=== PATIENT | female | born 1940 | race Caucasian/White ===

== ENCOUNTER 2017-06-15 07:48 | Day surgery (SDC) | payer MEDICARE, BC ==
[~2017-06-15] VITALS: Ht 157.5 cm; Wt 60.8 kg
[2017-06-15] MEDS ORDERED: LEVOTHYROXINE125 MCG PO (08:04)
--- NOTE | 2017-06-15 09:48 | NUR ---
06/15/17 0948 Gail Wilder 0952 PATIENT ARRIVES TO PACU SLEEPING, OPENS EYES TO VERBAL STIMULI, THEN BACK TO SLEEP. RESP EVEN AND UNLABORED, NC AT 2 LITERS.
--- NOTE | 2017-06-16 10:38 | OR ---
[facility] [address], [place] [address] Signed DATE OF PROCEDURE: 06/15/17 PREOPERATIVE DIAGNOSES Screening. Diverticulosis. POSTOPERATIVE DIAGNOSES A 4-mm polyp proximal right colon. A 4-mm polyp at 15 cm (rectosigmoid junction). An 8-mm polyp at 10 cm (anterior with tattoo). PROCEDURE Colonoscopy with hot biopsy and injection of tattoo. Rigid proctoscopy. ESTIMATED BLOOD LOSS: None. INDICATIONS Aubrey is a 76-year-old female, who was asked to see me for her initial screening colonoscopy. She has no lower GI complaints. There is no family history of colon cancer or polyps. In the office, I gave her a pamphlet on colonoscopy and we reviewed that together along with the risks and benefits. She understands there is risk including but not limited to gas bloating, crampy abdominal pain, bleeding, perforation requiring surgery, and missed diagnosis. She told me her son underwent a colonoscopy, so she is somewhat familiar with the process. I had also reviewed the written instructions for the bowel prep. She also understands the need for IV conscious sedation. She had expressed understanding and wished to proceed. PROCEDURE NOTE Aubrey was taken into our endoscopy suite and placed in the left lateral decubitus position. She was given divided doses of 6 mg of Versed and 100 mcg of Fentanyl. A digital rectal exam was performed and this was unremarkable. The adult colonoscope was then introduced and advanced all around into the cecum under direct visualization of camera without difficulty. Her prep was good. The scope was then slowly withdrawn . We used a hot biopsy forceps to remove all 3 polyps. In the rectum, the polyp was behind the fold and so it was difficult to see and somewhat technically difficult to grab with a hot biopsy forceps. Consequently, we placed a tattoo on the distal side of that fold to tania its location. We then inserted the rigid proctoscope and we can see that it is at 10 cm anteriorly. We had retroflexed the flexible scope and we could see that there was no additional pathology noted above the anal canal. After this, the gas was suctioned out and the colonoscope removed. We noted no evidence of any diverticula. Aubrey tolerated the procedure quite well. Electronically Signed By: MILAGRO RIBEIRO MD 06/16/17 1038 PATIENT NAME: AUBREY ACEVES OPERATIVE REPORT DATE OF : 38 PHYSICIAN: MILAGRO RIBEIRO MD REPORT #: [id number] REPORT IS CONFIDENTIAL AND NOT TO BE RELEASED WITHOUT AUTHORIZATION [address] [address] Signed RECOMMENDATIONS I will see Aubrey back in my office in 7-14 days to review her results. MD VIVEK Arteaga/Frandy /[id number] cc: Addy Hannah MD Electronically Signed By: MILAGRO RIBEIRO MD 06/16/17 1038 PATIENT NAME: AUBREY ACEVES OPERATIVE REPORT DATE OF : 38 PHYSICIAN: MILAGRO RIBEIRO MD REPORT #: [id number] REPORT IS CONFIDENTIAL AND NOT TO BE RELEASED WITHOUT AUTHORIZATION
== END 2017-06-15 10:45 | disposition home or self-care (01) ==
LOC: OPS 07:48 → DS 07:48 → OPS 09:00 → DS 09:00 → OPS 10:45
PROVIDERS: Colon & Rectal Surgery
PROC: 0DBP8ZX Excision of Rectum, Via Natural or Artificial Opening Endoscopic, Diagnostic (ICD-10-PCS; 2017-06-15)
PROC: 3E0H8GC Introduction of Other Therapeutic Substance into Lower GI, Via Natural or Artificial Opening Endoscopic (ICD-10-PCS; 2017-06-15)
PROC: 0DBK8ZX Excision of Ascending Colon, Via Natural or Artificial Opening Endoscopic, Diagnostic (ICD-10-PCS; 2017-06-15)
PROC: 0DBN8ZX Excision of Sigmoid Colon, Via Natural or Artificial Opening Endoscopic, Diagnostic (ICD-10-PCS; principal; 2017-06-15 09:00)
DX: D12.2 Benign neoplasm of ascending colon (principal); K57.30 Diverticulosis of large intestine without perforation or abscess without bleeding; E11.9 Type 2 diabetes mellitus without complications; Z90.710 Acquired absence of both cervix and uterus; Z98.890 Other specified postprocedural states
CPT/HCPCS: 88305; 99152; 99153; J2250; J3010; J7120

== ENCOUNTER 2019-10-05 11:24 | Emergency (ER) | payer MEDICARE, OTHER ==
[~2019-10-05] VITALS: Ht 157.5 cm; Wt 60.8 kg
[~2019-10-05 11:24] MED LIST: ACIDOPHILUS1 EAC2 PO; BETAINE HCL300 MG PO; COUMADIN4 MG PO; DILTIAZEM ER120 M2 PO; FISH OIL 1,0001 EAC5 PO; LEVOTHYROXINE125 MCG PO; NP THYROID60 MG PO; NP THYROID90 MG PO; PRENATAL FORMU1 EAC3 PO; THYROID PO; THYROID30 MG PO; TIAZAC120 MG PO; VITAMIN D31000 UNI1 PO; WARFARIN SODIUM3 MG PO
== END 2019-10-05 13:39 | disposition home or self-care (01) ==
LOC: ED 11:24
DX: S62.525A Nondisplaced fracture of distal phalanx of left thumb, initial encounter for closed fracture (principal); S51.811A Laceration without foreign body of right forearm, initial encounter; S81.811A Laceration without foreign body, right lower leg, initial encounter; W18.30XA Fall on same level, unspecified, initial encounter; Z79.899 Other long term (current) drug therapy; Z79.01 Long term (current) use of anticoagulants
CPT/HCPCS: 29125; 73140; 99283-25

== ENCOUNTER 2021-06-10 06:25 | Day surgery (SDC) | payer MEDICARE, OTHER ==
[~2021-06-10] VITALS: Ht 157.5 cm; Wt 57.7 kg
[~2021-06-10 06:25] MED LIST changes: +ATORVASTATIN CA40 MG PO; -COUMADIN4 MG PO; +GLUCOPHAGE500 MG PO; +MEMANTINE HCL5 MG PO; +METFORMIN HCL750 MG PO; +WARFARIN SODIUM4 MG PO
--- NOTE | 2021-06-10 08:51 | NUR ---
06/10/21 0851 Gail Wilder 0881 PATIENT ARRIVES TO PACU, UNRESPONSIVE TO VERBAL STIMULI, ORAL AIRWAY IN PLACE. RESP EVEN AND UNLABORED, MASK AT 6 LITERS.
[2021-06-10] MEDS ORDERED: HYDROCODON-ACE1 EA10 PO (09:28)
[2021-06-10] MEDS ORDERED: ACETAMINOPHEN500 MG PO (09:28)
--- NOTE | 2021-06-10 09:45 | NUR ---
PT ALERT, ORIENTED AND SUPPORTED BY HER SON AICHA. PT IS PLEASANT, DID MENTION THAT SHE WAS CHILLED, WILL HAVE RN BRING WORM BLANKET. GAVE ENCOURAGEMENT. HADE PRAYER WITH BOTH. WILL FOLLOW
--- NOTE | 2021-06-10 10:34 | NUR ---
1025 ANSWERED CALL, PT WANTED TO GO TO THE BATHROOM SHE WAS ABLE TO WALK WITH MINIMAL ASSIST AND WAS ABLE TO VOID A GOOD AMOUNT OF CLEAR YELLOW URINE. PT TUCKED BACK INTO BED WITH WARM BLANKETS.
--- NOTE | 2021-06-10 16:31 | NUR ---
LATE ENTRY: 09: PATIENT BACK IN DAY SURGERY ROOM FROM PACU. LEFT BREAST DRESSING CDI. LEFT AXILLA DRESSING WITH SMALL AMOUNT OF RED DRAINAGE. IV SITE WNL. VS CHECKED. RATES PAIN 3/10. DECLINES PAIN MEDICATION AT THIS TIME. GIVEN SIPS OF WATER. ICE WATER PLACED AT BEDSIDE. 1100: DISCHARGE INSTRUCTIONS GIVEN TO PATIENT AND SON. IV DC'D WNL. TIP INTACT. ASSISTED PATIENT TO GET DRESSED. STAND BY ASSIST TO BATHROOM. 1112: PATIENT DISCHARGED TO HOME WITH SON VIA WHEELCHAIR.
--- NOTE | 2021-06-11 13:15 | OR ---
[facility] [address] [place], [place] [address] Signed DATE OF OPERATION: 06/10/2021 SURGEON: Laura Paz MD PREOPERATIVE DIAGNOSES: 1. Left lower outer breast mass highly suspicious for malignancy. 2. Dementia, chronic medical problems including chronic anticoagulation for atrial fibrillation. POSTOPERATIVE DIAGNOSES: 1. Left lower outer breast mass highly suspicious for malignancy. 2. Dementia, chronic medical problems including chronic anticoagulation for atrial fibrillation. 3. [place] lymph node negative on touch prep for metastatic disease. PROCEDURE: 1. Left partial mastectomy, lower outer quadrant. 2. Left methylene blue injection for sentinel lymph node biopsy. 3. Left deep axillary sentinel lymph node biopsy. ANESTHESIA: General LMA, Zoltan Hunter CRNA. INDICATIONS: This 80-year-old white woman is a patient of Pastor Camejo. She identified a mass in the lateral aspect of the breast which is in the left lower outer aspect. It is highly suspicious for malignancy based on clinical characteristics. Imaging studies including a mammogram and ultrasound confirmed this highly probable to be malignancy, so biopsy had not been performed. I have conferred with the radiologist, Dr. Cardoza regarding this, who suggested lumpectomy rather than image-guided biopsy given its location, her small breast and her other medical problems that would need to be contended with specifically management of anticoagulation. Given her underlying dementia and other logistical issues, I have reviewed with the patient and her son, option of management to include excision of the mass as a partial mastectomy with concurrent methylene blue sentinel lymph node biopsy. We acknowledge that the mass may be benign, though most likely is malignant based on clinical and radiographic characteristics. Streamlining her care and avoidance of reversing anticoagulation on multiple occasions plays into this approach at this time. If malignancy is identified and complete excision has been accomplished and sentinel lymph Electronically Signed By: LAURA PAZ MD 06/11/21 1315 PATIENT NAME: AUBREY ACEVES OPERATIVE REPORT DATE OF : 38 REPORT #: [id number] PHYSICIAN: LAURA PAZ MD PCP: PASTOR CAMEJO REPORT IS CONFIDENTIAL AND NOT TO BE RELEASED WITHOUT AUTHORIZATION [facility] [address], [place] [address] Signed node identification shows no sign of metastatic disease, and consideration would then be made for adjuvant radiation therapy. If the lesion proves to be benign, then no further treatment would be required obviously. Understanding the particulars in her situation, her son and the patient herself wished to proceed as we have described. FINDINGS: The mass in the breast was in the lower outer quadrant and was quite firm and highly suggestive of malignancy clinically. It did not penetrate through the pectoralis fascia and was excised with a clinically negative margin. Permanent pathology is pending. As regards to the sentinel lymph node, there was well identified with good uptake of methylene blue dye. There was a larger than expected approximately 2 cm in size, but on examination by Dr. Tatum, the pathologist was largely fatty infiltrated and the rim of lymphoid tissue was deemed better seen on a touch prep and frozen pathology so as to not destroy the parenchyma of the lymph node itself for permanent examination. The touch prep was negative for metastatic disease. Operation consisted of partial mastectomy with sentinel lymph node biopsy. No drains were required. DESCRIPTION OF PROCEDURE: The patient was brought to the operating room, given a general anesthetic by LMA technique. Preoperative antibiotic Ancef was given. Her COVID preop test was negative as well. 1 mL of methylene blue dye was injected in subepithelial space with a 30-gauge needle showing lymphatic uptake rather promptly. Minimal massage of the breast was undertaken to expedite lymphatic uptake as well. There was no clinically palpable axillary adenopathy. The mass of the breast was in the lower outer quadrant and measured at least 2 cm in size, it was quite firm, but not fixed to the chest wall. The breast and axilla and so forth were prepared with a Betadine solution and draped sterilely. A small transverse incision was made in the mid axilla. Dissection was carried through the subcutaneous tissue with blunt and electrocautery dissection identifying promptly a lymphatic channel with blue dye, which was followed to a relatively large lymph node that had good uptake of the dye as well. This was dissected free with all due care, found to be about 2 cm in size. This past a sentinel lymph node #1. Examination of the remaining axilla did not show other lymph nodes with blue dye uptake. The wound was then packed with some gauze. Attention was then turned towards the mass itself. Given its location, a submammary incision was deemed most advisable for cosmetic benefit. The inframammary crease in the lateral aspect was incised and a flap was developed superiorly maintaining a negative margin on the underlying firm and suspicious mass. Dissection was carried superiorly and then deeply to the chest wall maintaining a clinically negative margin throughout. Electronically Signed By: LAURA PAZ MD 06/11/21 1315 PATIENT NAME: AUBREY ACEVES OPERATIVE REPORT DATE OF : 39 REPORT #: [id number] PHYSICIAN: LAURA PAZ MD PCP: PASTOR CAMEJO REPORT IS CONFIDENTIAL AND NOT TO BE RELEASED WITHOUT AUTHORIZATION [place] [phone] Signed The specimen was oriented with a suture, a short stitch superior, a long stitch laterally. Complete excision was undertaken with no evidence of transgression of the tumor itself. Notably, the superficial margin was likely the closest though it was not likely to be positive in any way. Irrigation was undertaken in the wound. The parenchyma was reapproximated with interrupted 2-0 Vicryl and skin closed with running subcuticular 3-0 Vicryl, by this point, frozen pathology was returned. Instead of a frozen, examination of the lymph node, Dr. Tatum, the pathologist noted that the lymph node was largely fatty infiltrated and therefore, a touch prep was performed and sent it for frozen pathology. This did not show evidence of malignancy. There was no sign of bleeding or other problem within the axilla. The wound was closed with interrupted 2-0 Vicryl in deep layer and running subcuticular 3-0 Vicryl for the skin. Steri-Strips were applied to each wound as were Acticoat silver sponge dressings. The patient was ultimately allowed to emerge from anesthesia, extubated, and taken to the recovery room in good condition. Blood loss was less than 20 mL in aggregate. MD LASHELL Kirby/FABI /[id number] cc: TIA Shafer Copies: PASTOR CAMEJO ~ Electronically Signed By: LAURA PAZ MD 06/11/21 1315 PATIENT NAME: AUBREY ACEVES OPERATIVE REPORT DATE OF : 38 REPORT #: [id number] PHYSICIAN: LAURA PAZ MD PCP: PASTOR CAMEJO REPORT IS CONFIDENTIAL AND NOT TO BE RELEASED WITHOUT AUTHORIZATION
--- NOTE | 2021-06-17 16:01 | PATH ---
[facility] [address] [place], [place] [address] Signed THIS IS AN ADDENDUM REPORT SPECIMEN(S): A SENTINEL LYMPH NODE 1 SPECIMEN(S): B LEFT BREAST MASS SPECIMEN SOURCE: A. SENTINEL LYMPH NODE 1 B. LEFT BREAST MASS CLINICAL HISTORY: Left breast mass. FINAL PATHOLOGIC DIAGNOSIS: A. Rand lymph node, #1, lymphadenectomy: - One lymph node, negative for tumor (0/1). - AE1/AE3 immunohistochemical stain and multiple serial sections were examined. Control slide stained appropriately positive. B. 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 - Tumor size: 23 mm. - Histologic grade (Hackberry histologic score): - Glandular/tubular differentiation score: 3/3. - Nuclear pleomorphism score: 3/3. - Mitotic score: 2/3. - Overall grade: III/III, total score 8/9, high grade. - Tumor focality: Single focus of invasive carcinoma. - Associated in-situ component: Ductal carcinoma in situ, architectural pattern comedo carcinoma, high nuclear grade, comedonecrosis is identified, not extensive. - Margins: - Invasive: - Anterior margin 1 mm. - Posterior margin 8 mm. - All other margins greater than 8 mm. - Ductal carcinoma in situ margins: - Anterior margin 4 mm. - All other margins greater than 4 mm. - Treatment effect: No known presurgical therapy. - Lymphovascular invasion: Not identified. PATIENT NAME: AUBREY ACEVES PATHOLOGY DATE OF : 39 REPORT #: [id number] PHYSICIAN: GISELL PATHOLOGY PCP: PASTOR MARY REPORT IS CONFIDENTIAL AND NOT TO BE RELEASED WITHOUT AUTHORIZATION [facility] [address] [place], [place] [address] Signed - Microcalcifications: Present in the invasive component and benign breast tissue. - Additional pathologic findings: Fibrocystic change and apocrine metaplasia. - Estrogen receptor, progesterone receptor, HER2/brian: Pending and will be reported in an addendum report. - Surgical pathology stage: pT2, pN0(sn). COMMENT: As part of [facility]' Quality Improvement Program, this case was reviewed by another member of our pathology staff. SANFORDK:NRT:[facility]:C1NR MICROSCOPIC EXAMINATION: Histologic sections of all submitted blocks are examined by light microscopy. These findings, together with the gross examination, support the pathologic diagnosis. GROSS DESCRIPTION: Two specimens are received in two containers, labeled "Aubrey Aceves." A. The specimen, labeled "Aubrey Aceves," and designated on the requisition "sentinel lymph node #1," is received fresh for intraoperative consult and consists of 2.4 x 1.5 x 0.8 cm yellow-keenan possible lymph node. A touch prep is made. The specimen is serially sectioned and entirely submitted in cassette A1. B. The specimen, labeled "Aubrey Aceves," and designated on the requisition "left breast mass," is received in formalin and consists of 32 gram oriented portion of yellow-keenan fibroadipose tissue that is 6.4 x 4.7 x 2.9 cm. A short suture is present and identifies the superior margin; a long suture identifies the lateral margin. The specimen is inked as follows: superior - blue; inferior - green; medial - red; lateral - orange; anterior - yellow; and posterior - black. The specimen is serially sectioned from superior to inferior into 12 slices revealing a 2.3 x 1.9 x 1.6 cm pink firm, ill-defined mass. The mass is present in slices 4-8, 0.4 cm from the anterior soft tissue margin, 0.7 cm from the posterior soft tissue margin, 1.6 cm from the superior soft tissue margin, 1.8 cm from the inferior soft tissue margin, 0.8 cm from the medial soft tissue margin, and 0.5 cm from the lateral soft tissue margin. Approximately 70% of the remaining specimen is a yellow-keenan greasy adipose tissue and 30% is a white-keenan rubbery fibrous tissue. Perinatology Physician sections are submitted in six cassettes. PATIENT NAME: AUBREY ACEVES PATHOLOGY DATE OF : 39 REPORT #: [id number] PHYSICIAN: GISELL PIERSON PCP: PASTOR MARY REPORT IS CONFIDENTIAL AND NOT TO BE RELEASED WITHOUT AUTHORIZATION [facility] [address] [place], [place] [address] Signed Cassette summary: (B1-B2) slice six, bisected (B3-B4) slice seven, bisected (B5) slice one, superior soft tissue resection margin, perpendicular (B6) slice 12, inferior soft tissue resection margin, perpendicular Cold ischemia time: Insufficient data to calculate. Approximate Formalin time: 20-28 hours. INTRAOPERATIVE CONSULT: A. [place] lymph node #1 left:Touch prep: Negative for tumor. Gross evaluation: Fatty lymph node with thin rim of lymphoid tissue present. (Dr. Tatum, 823 hours, 06-10-2021 FB (under the direct supervision of a pathologist) The Gross Description was prepared using a voice recognition system. The report was reviewed for accuracy; however, sound-alike word errors, addition and/or deletions may occur. If there is any question about this report, please contact Client Services. ADDITIONAL NOTES: Immunohistochemical and/or in situ hybridization studies were performed on this case with the appropriate positive controls that react as expected. This test was developed and its performance characteristics determined by [facility]. It has not been cleared or approved by the U.S. Food and Drug Administration. The FDA has determined that such clearance or approval is not necessary. This test is used for clinical purposes. It should not be regarded as investigational or for research. [facility] is certified under the Clinical Laboratory Improvement Amendments of 1988 (CLIA) as qualified to perform high complexity clinical laboratory testing. This assay has not been validated for specimens that have been decalcified. PERFORMING LABORATORY: [facility], [address] [place] [id number] (CLIA# [id number]). The technical component was performed by [facility], [address] [place] [address] (Worker'S Compensation Claims Examiner: Fay Steel MD; CLIA# [id number]). Professional interpretation [facility], [address] [address] (CLIA# [id number]). ADDITIONAL NOTES: PATIENT NAME: AUBREY ACEVES PATHOLOGY DATE OF : 38 REPORT #: [id number] PHYSICIAN: GISELL PIERSON PCP: PASTOR MARY REPORT IS CONFIDENTIAL AND NOT TO BE RELEASED WITHOUT AUTHORIZATION [facility] [address] [place], [place] [address] Signed Immunohistochemical and/or in situ hybridization studies were performed on this case with the appropriate positive controls that react as expected. This test was developed and its performance characteristics determined by [facility]. It has not been cleared or approved by the U.S. Food and Drug Administration. The FDA has determined that such clearance or approval is not necessary. This test is used for clinical purposes. It should not be regarded as investigational or for research. [facility] is certified under the Clinical Laboratory Improvement Amendments of 1988 (CLIA) as qualified to perform high complexity clinical laboratory testing. This assay has not been validated for specimens that have been decalcified. The technical component was performed by [facility], [address] [place] [id number] (Worker'S Compensation Claims Examiner: Fay Steel MD; CLIA# [id number]). The professional interpretation was performed by [facility], [facility], [address] [place] [address]. REASON FOR ADDENDUM: To add results of additional testing. ADDENDUM PATHOLOGIC DIAGNOSIS: - Estrogen receptor: Positive. - 100% of tumor cells with strong average intensity. - Progesterone receptor: Positive. - 30% of tumor cells with strong average intensity. TWK:em ADDENDUM MICROSCOPIC EXAMINATION: Block: B1 The cold ischemia time is unknown. The fixative is 10% NBF. The length of fixation is 20-28 hours. Estrogen receptor clone SP1 and progesterone receptor clone 1E2 by [employer] [place], [place]. Detection: HRP Polymer Detection on the [employer] with appropriate controls. Nuclear immunoreactivity of 1% or greater is considered positive by ASCO/CAP 2020 guidelines. Internal control cells for ER are positive. Internal control cells for SD are positive. PERFORMING LABORATORY: PATIENT NAME: AUBREY ACEVES PATHOLOGY DATE OF : 38 REPORT #: [id number] PHYSICIAN: GISELL PIERSON PCP: PASTOR MARY REPORT IS CONFIDENTIAL AND NOT TO BE RELEASED WITHOUT AUTHORIZATION [facility] [address] [place] [id number] Signed The technical and professional components were performed by [facility], [address] [place] [address] (Worker'S Compensation Claims Examiner: Fermin Almonte D.O.; CLIA#: [id number]). REASON FOR ADDENDUM: To add results of additional testing. ADDENDUM PATHOLOGIC DIAGNOSIS: B. HER-2 protein by IHC, left breast mass, invasive ductal carcinoma: - Equivocal; IHC score 2+. ADDENDUM COMMENT: In view of the equivocal IHC result, reflex testing for HER-2 amplification by FISH has been ordered and will be reported by addendum. TTP:[facility] ADDENDUM MICROSCOPIC EXAMINATION: Block: B1. The fixation is 10% buffered formalin. The length of fixation is 20-28 hours, meeting ASCO/CAP guidelines. HER-2 protein expression by immunohistochemistry using the FDA-approved HER-2 Pathway is performed at [facility], [place], [place], at the request of Dr. Bladimir Tatum. Standardized batch control materials react appropriately. The presence of tumor is confirmed. Scoring is according to ASCO/CAP 2018 guidelines. Weak to moderate complete membrane staining observed in greater than 10% of tumor cells; score 2+. Diagnostician: Bladimir Tatum MD Pathologist Diagnostician: Lianet Ortiz MD Pathologist Electronically Signed 06/17/2021 Copies: ~ PATIENT NAME: AUBREY ACEVES PATHOLOGY DATE OF : 38 REPORT #: [id number] PHYSICIAN: GISELL PATHOLOGY PCP: PASTOR MARY REPORT IS CONFIDENTIAL AND NOT TO BE RELEASED WITHOUT AUTHORIZATION
== END 2021-06-10 11:12 | disposition home or self-care (01) ==
LOC: DS 06:25
PROVIDERS: ATTEND Surgery
PROC: C71LYZZ Planar Nuclear Medicine Imaging of Upper Chest Lymphatics using Other Radionuclide (ICD-10-PCS; 2021-06-10)
PROC: 0HBU0ZZ Excision of Left Breast, Open Approach (ICD-10-PCS; principal; 2021-06-10 06:45)
PROC: 07B60ZZ Excision of Left Axillary Lymphatic, Open Approach (ICD-10-PCS; 2021-06-10 06:45)
DX: C50.512 Malignant neoplasm of lower-outer quadrant of left female breast (principal); I48.91 Unspecified atrial fibrillation; F03.90 Unspecified dementia, unspecified severity, without behavioral disturbance, psychotic disturbance, mood disturbance, and anxiety; I10 Essential (primary) hypertension; E03.9 Hypothyroidism, unspecified; Z79.01 Long term (current) use of anticoagulants; Z79.84 Long term (current) use of oral hypoglycemic drugs; Z90.710 Acquired absence of both cervix and uterus
CPT/HCPCS: 00404; 88305; 88307; 88342; J0131; J0690; J1100; J1885; J2001; J2405; J2704; J3010; J7121; Q9968

== ENCOUNTER 2023-07-12 16:11 | Emergency (ER) | payer MEDICARE, OTHER ==
[~2023-07-12] VITALS: Ht 157.5 cm; Wt 60.0 kg
[~2023-07-12 16:11] MED LIST changes: +ACETAMINOPHEN500 M1 PO; +ACETAMINOPHEN500 MG PO; +ANASTROZOLE1 MG PO; +CEPHALEXIN500 MG PO; +CORTIZONE-1028 GM TOP; +DILTIAZEM 24HR180 M1 PO; +HYDROCODON-ACE1 EA10 PO; +MEMANTINE HCL10 MG PO; +METFORMIN HCL500 MG PO; +NP THYROID15 MG PO; +SULFAMETHOXAZO1 EAC1 PO; +WARFARIN SODIUM2 MG PO; -WARFARIN SODIUM4 MG PO
[2023-07-12 18:21] VITALS: BP 179/93
== END 2023-07-12 18:05 | disposition home or self-care (01) ==
LOC: ED 16:11
DX: Z76.89 Persons encountering health services in other specified circumstances (principal); F03.90 Unspecified dementia, unspecified severity, without behavioral disturbance, psychotic disturbance, mood disturbance, and anxiety; I48.91 Unspecified atrial fibrillation; R90.89 Other abnormal findings on diagnostic imaging of central nervous system; Z79.01 Long term (current) use of anticoagulants; W19.XXXA Unspecified fall, initial encounter
CPT/HCPCS: 70450; 72125

== ENCOUNTER 2024-10-27 12:37 | Inpatient (IN) | payer MEDICARE ==
[~2024-10-27] VITALS: Ht 157.5 cm; Wt 58.7 kg
[2024-10-27 13:22] LABS: HEMOGLOBIN 10.4 g/dL (12.0-18.0)
[2024-10-27 13:24] LABS: BASOPHILS 0.7 % (0-2); EOSINOPHILS 2.3 % (0-6); HEMATOCRIT 31.8 % (35.0-50.0); LYMPHOCYTES 20.9 % (24-44); MCHC 32.7 g/dl (30-36); MCV 82.6 fl (81-99); MONOCYTES 11.5 % (0-12); NEUTROPHILS 64.6 % (39-80); PLATELET COUNT 224 K/uL (140-440); RBC 3.85 M/ul (4.3-5.7); RDW 14.9 (10.5-15.0)
[2024-10-27 13:34] LABS: INR 0.99 (0.80-1.30)
[2024-10-27 13:36] LABS: PARTIAL THROMBOPLASTIN TIME 23.8 Sec (22.9-41.3)
[2024-10-27 13:42] LABS: ALBUMIN 3.3 g/dL (3.4-5.0); ANION GAP 20.1 (7-21); BILIRUBIN, TOTAL 0.3 mg/dL (0.2-1.0); BUN/CREATININE RATIO 22.07 (6.0-28.6); CALCIUM 8.6 mg/dL (8.5-10.1); CREATININE, SERUM 0.77 mg/dL (0.55-1.02); POTASSIUM 4.1 mmol/L (3.5-5.1); PROTEIN, TOTAL 6.6 g/dL (6.4-8.2)
[2024-10-27] MEDS ORDERED: ASPIRIN 81 MG CHEW PO ONE (14:00)
[2024-10-27] MEDS ORDERED: ondansetron HCL 4 MG/2 ML VIAL IV PRN (16:30)
[2024-10-27] MEDS ORDERED: ACETAMINOPHEN 325 MG TAB PO PRN (16:30)
[2024-10-27] MEDS ORDERED: DEXTROSE 50% 50 ML SYR IV PRN ×2 (16:30)
[2024-10-27] MEDS ORDERED: GLUCAGON,HUMAN RECOMBINANT 1 MG/ML VIAL SUB-Q PRN (16:30)
[2024-10-27] MEDS ORDERED: DEXTROSE 5% 1,000 ML IV PRN (16:30)
[2024-10-27] MEDS ORDERED: IBLOOD GLUCOSE TEST STRIP 1 EA TEST XX PRN (16:30)
[2024-10-27] MEDS ORDERED: IBLOOD GLUCOSE TEST STRIP 1 EA TEST VI SCH (17:00)
[2024-10-27] MEDS ORDERED: INSULIN LISPRO 100 UNIT/ML ML SUB-Q SCH (17:00)
[2024-10-27 17:49] VITALS: BP 187/72
[2024-10-27 19:05] VITALS: BP 187/72
--- NOTE | 2024-10-27 19:35 | NUR ---
REPORT RECEIVED FROM DAY SHIFT RN. PATIENT IN ROOM WITH TEAM COORDINATOR AT BEDSIDE. CALL LIGHT IN REACH.
[2024-10-27 20:45] VITALS: BP 170/75
[2024-10-27] MEDS ORDERED: QUETIAPINE FUMARATE 25 MG TAB PO PRN (20:45)
[2024-10-27 20:57] VITALS: BP 170/75
[2024-10-27] MEDS ORDERED: MELATONIN 3 MG TAB PO PRN (21:00)
[2024-10-28] VITALS (11 sets, daily range): BP systolic 129–207; BP diastolic 59–92
--- NOTE | 2024-10-28 00:34 | NUR ---
BED ALARM SOUNDING. PATIENT UP TO BATHROOM USING 2P SBA TO VOID. PATIENT BACK TO BED. NO FURTHER NEEDS. BED ALARM ON. CALL LIGHT IN REACH.
--- NOTE | 2024-10-28 01:40 | NUR ---
PATIENT RESTING IN BED. VS AND I&Os OBTAINED AND RECORDED. PATIENT RESTING WITH EYES CLOSED. NO FURTHER NEEDS. CALL LIGHT IN REACH.
--- NOTE | 2024-10-28 03:52 | NUR ---
PATIENT RESTING IN BED ON BACK WITH EYES CLOSED. RESPIRATIONS EVEN AND UNLABORED. CALL LIGHT IN REACH.
[2024-10-28 05:27] LABS: EOSINOPHILS 3.7 % (0-6); HEMATOCRIT 29.4 % (35.0-50.0); HEMOGLOBIN 9.8 g/dL (12.0-18.0); LYMPHOCYTES 32.6 % (24-44); MCH 27.3 (27-36); MCHC 33.5 g/dl (30-36); MCV 81.7 fl (81-99); MONOCYTES 13.3 % (0-12); NEUTROPHILS 49.4 % (39-80); PLATELET COUNT 199 K/uL (140-440); RBC 3.59 M/ul (4.3-5.7); RDW 14.9 (10.5-15.0)
--- NOTE | 2024-10-28 05:42 | NUR ---
PATIENT UP TO BSC USING 2P SBA. PATIENT UNABLE TO VOID. ABD DISTENDED. PATIENT BACK TO BED USING 2P SBA. BLADDER SCAN READ 1084 mL IN BLADDER. BED ALARM ON. CALL LIGHT IN REACH.
[2024-10-28 05:44] LABS: CHOLESTEROL/HDL RATIO 2.3
[2024-10-28 05:45] LABS: ANION GAP 13.8 (7-21); BILIRUBIN, TOTAL 0.3 mg/dL (0.2-1.0); BUN/CREATININE RATIO 21.62 (6.0-28.6); CALCIUM 8.5 mg/dL (8.5-10.1); CREATININE, SERUM 0.74 mg/dL (0.55-1.02); PHOSPHORUS, INORGANIC 4.2 mg/dL (2.5-4.9); POTASSIUM 3.8 mmol/L (3.5-5.1)
--- NOTE | 2024-10-28 05:58 | NUR ---
PATIENT UP TO BATHROOM TO VOID. PATIENT BACK TO BED. BLADDER SCAN READ 860 mL POST VOID. MD BOWMAN UPDATED VIA TELEPHONE ABOUT URINE RETENTION. NEW ORDER RECEIVED. VERIFIED USING REPEAT BACK METHOD.
--- NOTE | 2024-10-28 06:22 | NUR ---
STRAIGHT CATH PERFORMED USING STERILE PROCEDURE. PATIENT SARAH WELL.
[2024-10-28 06:25] LABS: BILIRUBIN, URINE NEGATIVE (negative); BLOOD/HGB, URINE NEGATIVE (Negative); KETONE, URINE NEGATIVE (Negative); LEUK ESTERASE, URINE NEGATIVE (negative); NITRITE, URINE NEGATIVE (negative); PH, URINE 6.5 (5-7)
[2024-10-28 06:30] LABS: RED BLOOD CELLS, URINE 0-1 /hpf (0-5)
[2024-10-28] MEDS ORDERED: LIDOCAINE 2% VISCOUS 6 ML SYR TOP ONE (06:30)
[2024-10-28 06:31] LABS: BACTERIA, URINE NONE SEEN /hpf (negative); CASTS, URINE NONE SEEN \\lpf; COLLECTION TYPE, URINE CLEAN CATCH; CRYSTALS, URINE NONE SEEN (0-1+); EPITHELIAL CELLS, URINE SQUAMOUS 1+ /lpf (0-1+); REFLEX CULTURE, URINE No (No); WHITE BLOOD CELLS, URINE 0-1 /HPF (0-5)
--- NOTE | 2024-10-28 07:05 | NUR ---
REPORT REC'D FROM SHAMEKA JOHNSON AT BEDSIDE. PT RESTING QUIETLY AT THIS TIME. BED ALARM ON, CALL JOSE IN REACH, BED LOW POSITION AND LOCKED, SIDERAILS UP X3
--- NOTE | 2024-10-28 07:15 | NUR ---
REPORT REC'D FROM JASMIN JOHNSON. PT RESTING QUIETLY IN BED. SIDERAILS UP X3, BED ALARM ACTIVATE, BED LOW POSITION AND LOCKED, CALL JOSE IN REACH
--- NOTE | 2024-10-28 09:35 | NUR ---
REQUESTING PATIENT BE PLACED ON TELE. TELE BOX 39 OBTAINED FROM CCU. PT NOTED TO BE SR 90'S. PT NOTED TO HAVE HX OF AFIB.
--- NOTE | 2024-10-28 09:49 | NUR ---
Patient is 1:1 for safety. Visitor is currently in the room. PT is planning to work with patient after breakfast.
[2024-10-28] MEDS ORDERED: PHARMACY RENAL DOSE ADJUSTMENT 1 DOSE MISC PO SCH (12:00)
--- NOTE | 2024-10-28 12:11 | NUR ---
Patient is currently sitting up in their chair. Blood sugar checked and reported to JASMIN Emmanuel. Family in the room visiting. Doctor at bedside. Call light and personal items within reach.
--- NOTE | 2024-10-28 13:42 | NUR ---
Patient is beginning to become agitated and restless. They walked around their room with SBA. Coloring books, crayons, and cards were provided to entertain the patient. Friend in room visiting. Patient is currently sitting up in the chair with the alarm set. Call light and personal items are within reach.
--- NOTE | 2024-10-28 14:48 | NUR ---
PATIENT IS CURRENTLY ASLEEP IN THE CHAIR. PATIENT HAS A 1 ON 1 STAFF WITH HER.
--- NOTE | 2024-10-28 15:43 | NUR ---
Patient continues to be confused and disoriented, redirection has helped. Patient has been on the phone talking with family. They are sitting in their chair with the alarm set.
--- NOTE | 2024-10-28 16:01 | NUR ---
CALL PLACED TO [facility] TO OBTAIN MEDICAL RECORDS. PHONES UNABLE TO CONNECT. SNAKER DRIVING HORSES ALSO ATTEMPTED WITHOUT CONNECTION
--- NOTE | 2024-10-28 18:05 | NUR ---
DR BOWMAN NOTIFIED OF PT'S HIGH BLOOD PRESSURE, STATES HE WILL PUT MED ORDER IN.
[2024-10-28] MEDS ORDERED: hydrALAZINE HCL 20 MG/ML VIAL IV PRN (18:15)
--- NOTE | 2024-10-28 18:42 | NUR ---
PT PLEASANT AND COOPERATIVE T/O SHIFT, HOWEVER AT 1830 PATIENT HAS BECOME INCREASINGLY AGITATED, PULLING OFF TELEMTRY MONITOR AND FIDGITING WITH GOWN AND [place]KINS. PT REORIENTED AND REDIRECTED. PT ALSO NOTED TO HAVE ELEVATED BP, ORDERS REC'D FROM DR. BYERS. PT MEDICATED WITH 10MG APRESOLINE IVP. PT HAS BEEN UP TO BRP TO VOID X2 WITH 1 BM. PT REMAINS UP IN CHAIR AT THIS TIME WITH CHAIR ALARM ON AND SITTER IN ROOM.
--- NOTE | 2024-10-28 18:47 | NUR ---
Patient is becoming increasingly more agitated and confused. Attempting to leave the room and pulling at their tele. Redirection is working but the patient continues their behaviors. JASMIN Emmanuel notified and entered to administer medication.
--- NOTE | 2024-10-28 19:15 | NUR ---
tele in place, repositioned several times as he takes leads off. irritable mood, redirectable after several cues. out of chair, walked in room and tried to ealk out in hallways, back to room, Pt was looking for her siater, redirectable. Up to BRp, voided small amount dark yellow urine and had small soft dark bm. Did own oral care, and back to bed, requires several cues, took sips of fluids. no c/o pain or CP. Bed alarms in place
--- NOTE | 2024-10-28 19:22 | NUR ---
PT BP RECHECK 152/59. PT RETURNED TO BED, SIDERAILS UP X3, CALL JOSE IN REACH, BED ALARM ACTIVATED, BED LOW POSITION AND LOCKED. SITTER AT BEDSIDE
--- NOTE | 2024-10-28 19:24 | NUR ---
RECEIVED REPORT FROM DAY SHIFT RN. PATIENT IS RESTING IN BED. PATIENT IS 1 ON 1 FOR PATIENT SAFETY. DICK RN IS AT BEDSIDE.
[2024-10-28 19:36] LABS: PROTIME 13.1 Sec (11.2-14.2)
--- NOTE | 2024-10-28 20:09 | NUR ---
PATIENTS UP TO BR A SBA PATIENT ABLE TO VOID. PATIENTS ASSESMENT COMPLETED. PATIENTS PM MEDS GIVEN PER ORDER. PATIENT DENIES ANY PAIN. PATIENT IS RESTLESS AND APPEARS AGITATED WITH HOSPITAL INTERVENTIONS. PATIENT REASSURED BY THIS RN THAT SHE IS SAFE. PATIENT ASKING "WHAT BOX IS THIS FOR". PATIENT IS HOLDING TELE BOX. PATIENT UPDATED ON PLAN OF CARE THAT SHE IS HERE FOR A TIA AND THAT WE ARE MONITORING HER HEART. PATIENT VERBALIZES UNDERSTANDING. PATIENT IS IN BED RESTING WITH BED ALARM ON FOR SAFETY. PATIENT REMAINS A 1 ON 1 AND DICK RN IS SITTING WITH PATIENT FOR SAFETY. CALL LIGHT IN REACH.
[2024-10-28] MEDS ORDERED: WARFARIN SOD 5 MG TAB PO ONE (20:15)
--- NOTE | 2024-10-28 20:21 | NUR ---
PATIENT IS RESTING IN BED. PM MEDS GIVEN PER ORDER. PATIENT DENIES ANY FURTHER NEEDS. CALL LIGHT IN REACH. BED ALARM ON FOR SAFETY. PATIENT REMAINS A 1 ON 1 FOR SAFETY.
--- NOTE | 2024-10-28 20:55 | NUR ---
trying and got out of bed, bed alrm going off, irritable mood but redirectable. started fixing bedcovers,. tele#9 tachy up to 145, sob with exertion. redirected back to bed after straightheneing bedcovers in bed by self and many cues. Back to bed. bed alrm in place. Denies CP
[2024-10-28] MEDS ORDERED: ATORVASTATIN 40 MG TAB PO SCH (21:00)
--- NOTE | 2024-10-28 21:17 | NUR ---
crawled out of bed, took telebox offf, redirected back to bed, straightened her own covers and got back in bed. sob with exertion, tachy, recuperated easily once she gets into bed. irritable mood but redirectable, alarms back on
--- NOTE | 2024-10-28 22:12 | NUR ---
PATIENT IS RESTING IN BED WITH EYES CLOSED, RR 15. HR ON TELE NOTED TO BE 100. CALL LIGHT IN REACH. BED ALARM ON FOR SAFETY.
[2024-10-29] VITALS (11 sets, daily range): BP systolic 131–166; BP diastolic 62–86
--- NOTE | 2024-10-29 00:01 | NUR ---
PATIENT IS RESTING IN BED WITH EYES CLOSED. TELE #9 WITH NOTED HR OF 74. NAD NOTED. CALL LIGHT IN REACH. BED ALARM ON FOR SAFETY.
--- NOTE | 2024-10-29 02:06 | NUR ---
PATIENT IS RESTING IN BED WITH EYES CLOSED, RR 16. HR ON TELE NOTED TO BE 71. NAD NOTED. BED ALARM ON FOR SAFETY. CALL LIGHT IN REACH.
--- NOTE | 2024-10-29 03:37 | NUR ---
bed arlm going off, up to BRP, stiff unsteady gait, SBA. voided QS yellow with sediments urine. BAck to bed, cooperative. tele#[address] no SOB noted at present. Bed alrm on. took sips of fluids, no n/v
--- NOTE | 2024-10-29 04:05 | NUR ---
PATIENT IS RESTING IN BED WITH EYES CLOSED, RR 16. CALL LIGHT IN REACH. BED ALARM ON FOR SAFETY.
[2024-10-29 05:12] LABS: BASOPHILS 0.9 % (0-2); HEMATOCRIT 30.2 % (35.0-50.0); HEMOGLOBIN 10.1 g/dL (12.0-18.0); LYMPHOCYTES 23.9 % (24-44); MCH 27.1 (27-36); MCHC 33.6 g/dl (30-36); MCV 80.8 fl (81-99); MONOCYTES 13.8 % (0-12); NEUTROPHILS 58.4 % (39-80); PLATELET COUNT 213 K/uL (140-440); RBC 3.74 M/ul (4.3-5.7); RDW 15.3 (10.5-15.0)
[2024-10-29 05:27] LABS: INR 1.01 (0.80-1.30); PROTIME 13.2 Sec (11.2-14.2)
[2024-10-29 05:36] LABS: ANION GAP 12.6 (7-21); BILIRUBIN, TOTAL 0.3 mg/dL (0.2-1.0); BUN/CREATININE RATIO 33.84 (6.0-28.6); CALCIUM 8.7 mg/dL (8.5-10.1); CREATININE, SERUM 0.65 mg/dL (0.55-1.02); POTASSIUM 3.6 mmol/L (3.5-5.1)
[2024-10-29] MEDS ORDERED: THYROID PORK 30 MG PO SCH (07:00)
[2024-10-29] MEDS ORDERED: THYROID 60 MG TAB PO SCH ×4 (07:00→09:00)
[2024-10-29] MEDS ORDERED: SULFAMETHOXAZO1 EACH PO (07:18)
[2024-10-29] MEDS ORDERED: GLIPIZIDE ER10 MG PO (07:19)
[2024-10-29] MEDS ORDERED: METFORMIN HCL1000 MG PO (07:21)
--- NOTE | 2024-10-29 07:21 | NUR ---
REPORT RECEIVED FROM NELSON CASTELLANOS. PT RESTING IN BED, WAKES WHEN THIS RN ENTERS. 1:1 NAYLA BRUNER AT BEDSIDE. PT HAS NO REQUESTS AT THIS TIME, CALL LIGHT IN REACH, NAYLA BRUNER REMAINS IN ROOM.
[2024-10-29] MEDS ORDERED: ANASTROZOLE 1 MG TAB PO SCH (09:00)
[2024-10-29] MEDS ORDERED: dilTIAZem HCL 180 MG CAPCR PO SCH (09:00)
[2024-10-29] MEDS ORDERED: CEPHALEXIN MONOHYDRATE 500 MG HOME.PACK PO SCH (09:00)
[2024-10-29] MEDS ORDERED: MEMANTINE HCL 5 MG TAB PO SCH ×2 (09:00→21:00)
--- NOTE | 2024-10-29 09:07 | NUR ---
ASSESSMENT COMPLETE. PT SITTING UP IN BED EATING BREAKFAST, 1:1 ZOHREH AT BEDSIDE. MUSIC PROVIDED FOR PT ENJOYMENT. PT MILDLY IRRITABLE THIS AM, BUT REDIRECTABLE. IV TO L WRIST FLUSHES WNL. PT HAS NO COMPLAINTS OF PAIN OR DISCOMFORT AND NO REQUESTS FOR ANYTHING. TELE IN PLACE READS SINUS RHYTHYM, HEART RATE REGULAR. PT REMAINS EATING BREAKFAST AT THIS TIME, CALL LIGHT IN REACH, 1:1 PRESENT.
--- NOTE | 2024-10-29 10:48 | NUR ---
1:1 OFF FOR BREAK. PT BECOMES RESTLESS AND STANDS FROM HER CHAIR. PT AMBULATING IN ROOM WITH SBA, REDIRECTED TO COMBING HER HAIR IN THE BATHROOM. PT REPORTS LOW BACK PAIN BUT CANNOT GIVE NUMERICAL RATING. PRN PAIN MEDICATION ADMINISTERED, SEE MAR. PT REDIRECTED TO SIT AT BEDSIDE. VISITOR ARRIVES TO SEE PT BRIEFLY. PT VISITING WITH VISITOR. 1:1 RETURNS FROM BREAK AT THIS TIME.
--- NOTE | 2024-10-29 11:48 | NUR ---
CALL TO [facility]) PATIENT MAY NOT RETURN TODAY, NO NURSE IS AVAILABLE. MEDICATION LIST IS REQUESTED.
[2024-10-29] MEDS ORDERED: TRIMETHOPRIM/SULFAMETHOXAZOLE 1 EA TAB PO SCH (12:14)
--- NOTE | 2024-10-29 12:56 | NUR ---
MEDICATIONS ADMINISTERED, SEE MAR. PT UP IN RECLINER EATING LUNCH. PT REPORTS HER BACK STILL FEELS "CRANKY" BUT CANNOT GIVE NUMERICAL RATING TO HER PAIN. PT DENIES ICE PACK OR HEAT PACK, STATES "OH, IT'S NOT THAT BAD, DON'T EVEN WORRY ABOUT IT." NO OTHER REQUESTS AT THIS TIME, CALL LIGHT IN REACH.
--- NOTE | 2024-10-29 14:07 | NUR ---
PT SITTING UP IN RECLINER RESTING WITH EYES CLOSED, RR EVEN AND UNLABORED. NAYLA BRUNER RETURNS FOR 1:1.
--- NOTE | 2024-10-29 15:06 | NUR ---
PT UP IN RECLINER PLAYING CARDS WITH NAYLA BRUNER. IV TO L WRIST FLUSHES WNL, PT REPORTS NO PAIN OR DISCOMFORT AT SITE, NO REDNESS OR WARMTH NOTED. PT ALERT, ORIENTED TO SELF ONLY. SHE REPORTS THAT SHE IS "REALLY BORED". CURRENTLY REPORTS NO PAIN OR DISCOMFORT AND HAS NO REQUESTS. 1:1 ZOHREH REMAINS WITH PT.
[2024-10-29] MEDS ORDERED: WARFARIN PER PHARMACY PROTOCOL PO SCH (16:00)
--- NOTE | 2024-10-29 16:42 | NUR ---
PT AMBULATES ONE LAP IN THE WANG WITH FWW AND VERBAL CUEING. PT REPEATEDLY ATTEMPTS TO WALK OFF WITHOUT USING FWW. PT TOLERATES WALK WELL AND RETURNS TO ROOM WITH NAYLA BRUNER.
--- NOTE | 2024-10-29 17:22 | NUR ---
MEDICATION ADMINISTERED, SEE NOV. PT UP IN RECLINER EATING SUPPER WITH ZOHREH 1:1 AT THIS TIME. NO REQUESTS.
--- NOTE | 2024-10-29 18:44 | NUR ---
PTs 1800 SYSTOLIC BLOOD PRESSURE WAS 166. D/T PT AGITATION AT THIS TIME, PRN BLOOD PRESSURE MEDICATION WAS NOT ADMINISTERED. BLOOD PRESSURE RECHECKED AT THIS TIME AND BLOOD PRESSURE IS NOW 136/81(96). ZOHREH REMAINS 1:1 WITH PT IN ROOM.
--- NOTE | 2024-10-29 19:20 | NUR ---
RECEIVED REPORT FROM DAY SHIFT RN. PATIENT IS RESTING IN BED. PATIENT IS CONFUSED, RESTLESS, AND AGITATED. PATIENT IS A 1 ON 1 FOR PATIENT SAFETY. SENIOR UNIX ADMINISTRATOR AT BEDSIDE. NO NEEDS NOTED. CALL LIGHT IN REACH.
--- NOTE | 2024-10-29 20:19 | NUR ---
PATIENTS VITALS TAKEN AND RECORDED. INTAKE AND OUTPUT RECORDED. PATIENTS ATTEND DRY AT THIS TIME. PATIENT DENIES NEED TO USE BR. PATIENT IS RESTLESS IN BED AND FRUSTRATED WITH "PEOPLE IN AND OUT OF MY ROOM", PRN MEDICATION GIVEN PER ORDER. PATIENT DENIES ANY PAIN OR NAUSEA. PATIENTS OM MEDS GIVEN PER ORDER. PATIENTS IV FLUSHED AND SL PER ORDER. PATIENT IS ON RA. PATIENT IS A 1 ON 1 FOR PATIENT SAFETY. ASSESMENT COMPLETED. NO FURTHER NEEDS NOTED. CALL LIGHT IN REACH. BED ALARM ON FOR SAFETY.
--- NOTE | 2024-10-29 22:19 | NUR ---
PATIENT IS RESTING IN BED WITH EYES CLOSED, RR 16. CALL LIGHT IN REACH. SITTER IN ROOM. 1 ON 1 FOR PATIENT SAFETY.
--- NOTE | 2024-10-29 23:59 | NUR ---
PATIENT IS IN BED RESTING WITH EYES CLOSED, RR 16. HR ON TELE NOTED TO BE 72. NAD NOTED. CALL LIGHT IN REACH. BED ALARM ON FOR SAFETY.
--- NOTE | 2024-10-30 01:01 | NUR ---
BED ALARM ALERTED STAFF. PATIENT ASSISTED TO THE BR A SBA. PATIENT ABLE TO VOID. PATIENT IS BACK IN BED RESTING. NO FURTHER NEEDS NOTED. CALL LIGHT IN REACH. BED ALARM ON FOR SAFETY.
--- NOTE | 2024-10-30 02:02 | NUR ---
PATIENT IS RESTING IN BED WITH EYES CLOSED, RR 15. HR ON TELE #9 NOTED TO BE 74. NAD NOTED. CALL LIGHT IN REACH.
--- NOTE | 2024-10-30 04:17 | NUR ---
PATIENT IS RESTING IN BED WITH EYES CLSOED, RR 16. CALL LIGHT IN REACH. BED ALARM ON FOR SAFETY.
[2024-10-30 04:55] VITALS: BP 166/71
[2024-10-30 04:57] VITALS: BP 166/71
--- NOTE | 2024-10-30 05:01 | NUR ---
BED ALARM ALERTING STAFF. PATIENT UP TO BR A SBA. PATIENT ABLE TO VOID. PATIENT IS BACK IN BED RESTING. PATIENTS VITALS TAKEN AND RECORDED. INTAKE AND OUTPUT RECORDED. ATTEND IS DRY AT THIS TIME. PATIENT DENIES ANY NEEDS. PATIENT REMAINS ONLY ORIENT TO SELF. PATIENT IS ON RA. LAB IN ROOM TO DRAW BLOOD. NO FURTHER NEEDS NOTED. CALL LIGHT IN REACH. BED ALARM ON FOR SAFETY.
[2024-10-30 05:13] LABS: BASOPHILS 0.9 % (0-2); EOSINOPHILS 2.7 % (0-6); HEMATOCRIT 31.1 % (35.0-50.0); HEMOGLOBIN 10.3 g/dL (12.0-18.0); LYMPHOCYTES 22.5 % (24-44); MCV 81.9 fl (81-99); MONOCYTES 10.9 % (0-12); PLATELET COUNT 230 K/uL (140-440)
[2024-10-30 05:31] LABS: ALBUMIN 3.2 g/dL (3.4-5.0); ALBUMIN/GLOBULIN RATIO 0.97 (1.1-2.4); BILIRUBIN, TOTAL 0.5 mg/dL (0.2-1.0); BUN/CREATININE RATIO 30.66 (6.0-28.6); CALCIUM 9.1 mg/dL (8.5-10.1); CREATININE, SERUM 0.75 mg/dL (0.55-1.02); PROTEIN, TOTAL 6.5 g/dL (6.4-8.2)
--- NOTE | 2024-10-30 07:20 | NUR ---
REPORT RECEIVED FROM JASMIN DAMON. PT HAS SITTER IN ROOM AND IS RESTING WITH EYES CLOSED.
[2024-10-30 07:38] VITALS: BP 150/68
[2024-10-30 08:49] VITALS: BP 150/68
--- NOTE | 2024-10-30 08:51 | NUR ---
PT SITTING UP IN CHAIR, SITTER IN ROOM FOR SAFETY. PT FRIEND IN ROOM. HOPING TO GO HOME TODAY. EATING BREAKFAST.
--- NOTE | 2024-10-30 09:58 | NUR ---
INTO SEE PATIENT PERSONAL HEALTH INFORMATION REVIEWED. PATIENT LIVES AT [facility]. PATIENT DOES NOT USE A WALKER AT BASELINE. WILL GIVE FAMILY MEMBER INFORMATION FOR [place]ARVIEW IF SHE NEEDS A WALKER. PATIENT DOES NOT USE OXYGEN OR CPAP. PATIENT FAMILY MEMBER BLANCA TO TAKE HER BACK ONCE NURSE DOES ASSESSMENT.NO FUTHER CM NEEDS. NURSE MARCELLA TO COME UP AND DO AN ASSESMENT.
--- NOTE | 2024-10-30 10:00 | NUR ---
In to see Rosalia this a.m. and obtain signature for second IMM letter. Rosalia is not oriented to place and time, and has been confused, requiring a patient bowling ball molder in the room for her safety. At the time that I am in the room, Rosalia has a patient bowling ball molder in the room and an adult female family member. The IMM letter is explained to the family member who denies questions or concerns with signing the letter on Rosalia's behalf. Rosalia is up in her chair at the bedside, she is clean, her hair is combed, and she appears to be happy, smiling and responding to a simple question of "How are you today Rosalia?" Response "I am fine, as far as a I know anyway." Family member expresses gratitude for the great care that Rosalia has received here in the hospital. She denies quesions, and she is agreeable to sign the letter without any noted hesitation, also waiving the four hour wait time if neccessary. A copy of the signed letter is given to the family member for review/records. Rosalia denies any patient care needs to this RN at this time.
--- NOTE | 2024-10-30 10:10 | NUR ---
UR CLINICAL REVIEW: 2 MN FOR [facility] NURSE MEETS INPT FOR CV[facility] WITH NEED FOR ONGOING MONITORING MEDICARE OBS TO INPT 10/28/24 @ 1630 ORDER MATCHES REG NO AUTH REQUIRED PER MEDICARE GUIDELINES DISCHARGE TO HOME POSSIBLE TODAY
--- NOTE | 2024-10-30 10:38 | NUR ---
PT AMBULATED IN WANG WITH SITTER. PT TOELRATED WELL AND DID SEVERAL LAPS.
--- NOTE | 2024-10-30 11:30 | NUR ---
[facility] STAFF HERE TO ASSESS PT. ANSWERED ALL QUESTIONS.
--- NOTE | 2024-10-30 11:57 | NUR ---
medications reconciled by pharmacy. patient no longer takes warfarin
[2024-10-30] MEDS ORDERED: QUETIAPINE FUMA25 MG PO (12:54)
[2024-10-30] MEDS ORDERED: BAYER CHEWABLE81 MG PO (12:54)
--- NOTE | 2024-10-30 13:02 | NUR ---
PT SITTING UP IN CHAIR TALKING WITH HER FRIEND. SPOKE WITH AND CASE MNG REGARDING GOING HOME.
--- NOTE | 2024-10-30 13:38 | NUR ---
PT SENT BACK TO [facility] WITH FRIEND BLANCA. PT EXVITED TO GO BACK. PLEASANTLY CONFUSE.D
== END 2024-10-30 13:22 | disposition home or self-care (01) | DRG 69 ==
LOC: ED 12:37 → MS 12:38
PROVIDERS: Emergency Medicine; ADMIT Family Medicine; ATTEND Family Medicine
DX: G45.9 Transient cerebral ischemic attack, unspecified (principal); F03.90 Unspecified dementia, unspecified severity, without behavioral disturbance, psychotic disturbance, mood disturbance, and anxiety; R33.9 Retention of urine, unspecified; E78.5 Hyperlipidemia, unspecified; I48.91 Unspecified atrial fibrillation; E03.9 Hypothyroidism, unspecified; R29.810 Facial weakness; M81.0 Age-related osteoporosis without current pathological fracture; E11.9 Type 2 diabetes mellitus without complications; Z90.710 Acquired absence of both cervix and uterus; Z88.8 Allergy status to other drugs, medicaments and biological substances; Z88.0 Allergy status to penicillin; Z79.01 Long term (current) use of anticoagulants; Z79.84 Long term (current) use of oral hypoglycemic drugs; Z79.890 Hormone replacement therapy; Z79.899 Other long term (current) drug therapy
CPT/HCPCS: 36415; 70450; 70496; 70498; 70551; 80053; 80061; 81001; 83036; 83735; 84100; 84484; 85025; 85610; 85730; 93306; 97161; 99285-25; A9270; J0360; J1815; Q3014; Q9967

== ENCOUNTER 2024-10-31 14:42 | Emergency (ER) | payer MEDICARE ==
[~2024-10-31] VITALS: Ht 157.5 cm; Wt 71.7 kg
[~2024-10-31 14:42] MED LIST changes: +BAYER CHEWABLE81 MG PO; +GLIPIZIDE ER10 MG PO; +METFORMIN HCL1000 MG PO; +QUETIAPINE FUMA25 MG PO; +SULFAMETHOXAZO1 EACH PO
--- OUTSIDE RECORDS SUMMARY | 2024-10-31 14:49 | XMS ---
PreManage Notification: AUBREY ACEVES Security Shipping And Receiving Assistant Events No recent Security Events currently on file CRITERIA MET - [facility] - 2 Visits in 30 Days CARE PROVIDERS POLLY DAMIAN Nurse Practitioner: Family Current PHONE: Unknown Nelda has no Care Guidelines for this patient. ERashi VISIT COUNT (12 MO.) 3 [facility] TOTAL 3 NOTE: Visits indicate total known visits. ED/UCC VISIT TRACKING (12 MO.) 10/31/2024 14:43 [facility] TYPE: Emergency COMPLAINT: - STROKE SYMPTOMS 10/27/2024 12:37 [facility] TYPE: Emergency COMPLAINT: - STROKE 12/15/2023 17:06 [facility] TYPE: Emergency COMPLAINT: - FALL DIAGNOSES: - Abrasion, right knee, initial encounter - Allergy status to other drugs, medicaments and biological substances - Essential (primary) hypertension - Fall on same level, unspecified, initial encounter - Hormone replacement therapy - FCI (current) use of anticoagulants - [facility]CI (current) use of aromatase inhibitors - long term care phlebotomist (current) use of oral hypoglycemic drugs - Pain in right shoulder - Unspecified atrial fibrillation - Unspecified dementia, unspecified severity, without behavioral disturbance, psychotic disturbance, mood disturbance, and anxiety - Unspecified place in unspecified non-institutional (private) residence as the place of occurrence of the external cause - Unspecified sprain of right shoulder joint, initial encounter INPATIENT VISIT TRACKING (12 MO.) 10/28/2024 16:30 [facility] TYPE: Medical Surgical COMPLAINT: - TIA [email or web address]
[2024-10-31 15:25] LABS: BASOPHILS 0.6 % (0-2); EOSINOPHILS 1.5 % (0-6); HEMATOCRIT 30.6 % (35.0-50.0); HEMOGLOBIN 10.2 g/dL (12.0-18.0); LYMPHOCYTES 15.4 % (24-44); MCH 27.5 (27-36); MCHC 33.4 g/dl (30-36); MCV 82.1 fl (81-99); MONOCYTES 9.3 % (0-12); NEUTROPHILS 73.2 % (39-80); PLATELET COUNT 240 K/uL (140-440); RBC 3.73 M/ul (4.3-5.7); RDW 14.8 (10.5-15.0)
[2024-10-31 15:35] LABS: ALBUMIN 3.4 g/dL (3.4-5.0); ALBUMIN/GLOBULIN RATIO 1.03 (1.1-2.4); ANION GAP 17.1 (7-21); BILIRUBIN, TOTAL 0.3 mg/dL (0.2-1.0); BUN/CREATININE RATIO 21.78 (6.0-28.6); CALCIUM 8.6 mg/dL (8.5-10.1); CREATININE, SERUM 1.01 mg/dL (0.55-1.02); POTASSIUM 4.1 mmol/L (3.5-5.1); PROTEIN, TOTAL 6.7 g/dL (6.4-8.2)
[2024-10-31 17:02] VITALS: BP 157/78
== END 2024-10-31 17:06 | disposition home or self-care (01) ==
LOC: ED 14:42
PROVIDERS: Emergency Medicine
DX: F03.90 Unspecified dementia, unspecified severity, without behavioral disturbance, psychotic disturbance, mood disturbance, and anxiety (principal); F05 Delirium due to known physiological condition; I10 Essential (primary) hypertension; E11.51 Type 2 diabetes mellitus with diabetic peripheral angiopathy without gangrene; E03.9 Hypothyroidism, unspecified; I48.0 Paroxysmal atrial fibrillation; M81.0 Age-related osteoporosis without current pathological fracture; Z88.8 Allergy status to other drugs, medicaments and biological substances; Z79.84 Long term (current) use of oral hypoglycemic drugs; Z79.01 Long term (current) use of anticoagulants; Z79.890 Hormone replacement therapy; Z79.899 Other long term (current) drug therapy
CPT/HCPCS: 36415; 80053; 85025; 99285

== ENCOUNTER 2024-11-23 14:23 | Emergency (ER) | payer MEDICARE, OTHER ==
[~2024-11-23] VITALS: Ht 157.5 cm; Wt 72.1 kg
--- OUTSIDE RECORDS SUMMARY | 2024-11-23 14:27 | XMS ---
PreManage Notification: AUBREY ACEVES Security Pharmacy Scheduler Events No recent Security Events currently on file CRITERIA MET - [facility] - 2 Visits in 30 Days CARE PROVIDERS POLLY DAMIAN Nurse Practitioner: Family Current PHONE: Unknown Nelda has no Care Guidelines for this patient. ERashi VISIT COUNT (12 MO.) 4 [facility] TOTAL 4 NOTE: Visits indicate total known visits. ED/UCC VISIT TRACKING (12 MO.) 11/23/2024 14:23 [facility] TYPE: Emergency COMPLAINT: - WEAKNESS 10/31/2024 14:43 [facility] TYPE: Emergency COMPLAINT: - STROKE SYMPTOMS DIAGNOSES: - Age-related osteoporosis without current pathological fracture - Allergy status to other drugs, medicaments and biological substances - Altered mental status, unspecified - Delirium due to known physiological condition - Essential (primary) hypertension - Hormone replacement therapy - Hypothyroidism, unspecified - retirement (current) use of anticoagulants - retirement (current) use of oral hypoglycemic drugs - Other shelter (current) drug therapy - Paroxysmal atrial fibrillation - Type 2 diabetes mellitus with diabetic peripheral angiopathy without gangrene - Unspecified dementia, unspecified severity, without behavioral disturbance, psychotic disturbance, mood disturbance, and anxiety 10/27/2024 12:37 [facility] TYPE: Emergency COMPLAINT: - STROKE 12/15/2023 17:06 [facility] TYPE: Emergency COMPLAINT: - FALL DIAGNOSES: - Abrasion, right knee, initial encounter - Allergy status to other drugs, medicaments and biological substances - Essential (primary) hypertension - Fall on same level, unspecified, initial encounter - Hormone replacement therapy - terminal operations manager (current) use of anticoagulants - terminal operations manager (current) use of aromatase inhibitors - terminal operations manager (current) use of oral hypoglycemic drugs - [...] OR TYPE: Medical Surgical COMPLAINT: - TIA DIAGNOSES: - Acquired absence of both cervix and uterus - Age-related osteoporosis without current pathological fracture - Allergy status to other drugs, medicaments and biological substances - Allergy status to penicillin - Facial weakness - Hormone replacement therapy - Hyperlipidemia, unspecified - Hypothyroidism, unspecified - retirement (current) use of anticoagulants - terminal operations manager (current) use of oral hypoglycemic drugs - Other terminal carman (current) drug therapy - Retention of urine, unspecified - Transient cerebral ischemic attack, unspecified - Type 2 diabetes mellitus without complications - Unspecified atrial fibrillation - Unspecified dementia, unspecified severity, without behavioral disturbance, psychotic disturbance, mood disturbance, and anxiety [email or web address]
[2024-11-23] MEDS ORDERED: IBLOOD GLUCOSE TEST STRIP 1 EA TEST VI ONE (14:30)
[2024-11-23 14:37] LABS: BASOPHILS 0.4 % (0-2); EOSINOPHILS 0.2 % (0-6); HEMATOCRIT 30.2 % (35.0-50.0); LYMPHOCYTES 7.9 % (24-44); MCHC 33.2 g/dl (30-36); MCV 81.2 fl (81-99); MONOCYTES 12.7 % (0-12); NEUTROPHILS 78.8 % (39-80); PLATELET COUNT 263 K/uL (140-440); RBC 3.72 M/ul (4.3-5.7); RDW 15.4 (10.5-15.0)
[2024-11-23 14:57] LABS: BILIRUBIN, URINE NEGATIVE (negative); BLOOD/HGB, URINE SMALL (Negative); KETONE, URINE TRACE (Negative); LEUK ESTERASE, URINE SMALL (negative); NITRITE, URINE POSITIVE (negative); PH, URINE 5.5 (5-7)
[2024-11-23 15:03] LABS: BACTERIA, URINE 4+ /hpf (negative); CASTS, URINE NONE SEEN \\lpf; COLLECTION TYPE, URINE CLEAN CATCH; CRYSTALS, URINE NONE SEEN (0-1+); EPITHELIAL CELLS, URINE SQUAMOUS 1+ /lpf (0-1+); REFLEX CULTURE, URINE Yes (No); WHITE BLOOD CELLS, URINE >50 /HPF (0-5)
[2024-11-23 15:05] LABS: ALBUMIN 3.2 g/dL (3.4-5.0); ALBUMIN/GLOBULIN RATIO 0.82 (1.1-2.4); ALCOHOL, MEDICAL <3 ng/dL (<3); ALKALINE PHOSPHATASE 62 U/L (46-116); ALT (SGPT) 20 U/L (14-59); ANION GAP 16.8 (7-21); AST (SGOT) 16 U/L (15-37); BILIRUBIN, TOTAL 0.4 mg/dL (0.2-1.0); CALCIUM 8.7 mg/dL (8.5-10.1); CARBON DIOXIDE 20 mmol/L (21-32); CHLORIDE 101 mmol/L (98-107); GLOMERULAR FILTRATION RATE,EST 55 mL/min (>60); POTASSIUM 3.8 mmol/L (3.5-5.1); PROTEIN, TOTAL 7.1 g/dL (6.4-8.2); UREA NITROGEN 26 mg/dL (7-18)
[2024-11-23 15:10] LABS: AMPHETAMINES, URINE NEGATIVE (NEGATIVE); BARBITURATES, URINE NEGATIVE (NEGATIVE); BENZODIAZEPINE, URINE NEGATIVE (NEGATIVE); BUPRENORPHINE, URINE NEGATIVE (NEGATIVE); CANNABINOID, URINE NEGATIVE (NEGATIVE); COCAINE, URINE NEGATIVE (NEGATIVE); ECSTASY, URINE NEGATIVE (NEGATIVE); FENTANYL, URINE NEGATIVE (NEGATIVE); METHADONE, URINE NEGATIVE (NEGATIVE); OPIATES, URINE NEGATIVE (NEGATIVE); OXYCODONE, URINE NEGATIVE (NEGATIVE); PHENCYCLIDINE, URINE NEGATIVE (NEGATIVE)
[2024-11-23] MEDS ORDERED: CEFTRIAXONE SODIUM 2 GM VIAL ONE (16:25)
[2024-11-23] MEDS ORDERED: CEFTRIAXONE SODIUM 2 GM in SODIUM CHLORIDE 0.9% 100 ML IV ONE (16:30)
[2024-11-23] MEDS ORDERED: CEFDINIR300 MG PO (17:20)
[2024-11-23 17:35] VITALS: BP 137/82
--- NOTE | 2024-11-24 11:50 | EKG ---
[facility] [address] [place] [address] Signed Normal sinus rhythm Nonspecific ST and T wave abnormality Abnormal ECG When compared with ECG of 15-DEC-2023 17:33, Sinus rhythm has replaced Junctional rhythm Nonspecific T wave abnormality now evident in Inferior leads Confirmed by Mayito Worthy MD ([id number]) on 11/24/2024 11:50:16 AM Electronically Signed By: MAYITO WORTHY MD 11/24/24 1150 PATIENT NAME: AUBREY ACEVES Electrocardiogram DATE OF : 38 PHYSICIAN: MAYITO WORTHY MD REPORT #: [id number] REPORT IS CONFIDENTIAL AND NOT TO BE RELEASED WITHOUT AUTHORIZATION
== END 2024-11-23 17:35 | disposition home or self-care (01) ==
LOC: ED 14:23
PROVIDERS: Emergency Medicine
DX: N39.0 Urinary tract infection, site not specified (principal); F03.90 Unspecified dementia, unspecified severity, without behavioral disturbance, psychotic disturbance, mood disturbance, and anxiety; I10 Essential (primary) hypertension; I48.91 Unspecified atrial fibrillation; E11.51 Type 2 diabetes mellitus with diabetic peripheral angiopathy without gangrene; E03.9 Hypothyroidism, unspecified; M81.0 Age-related osteoporosis without current pathological fracture; Z88.8 Allergy status to other drugs, medicaments and biological substances; Z79.890 Hormone replacement therapy; Z79.84 Long term (current) use of oral hypoglycemic drugs; Z79.899 Other long term (current) drug therapy
CPT/HCPCS: 36415; 51701; 71045; 80053; 80307; 81001; 84484; 85025; 93005; 93010; 99285-25; G0480; J0696

== ENCOUNTER 2024-12-16 21:51 | Emergency (ER) | payer MEDICARE, OTHER ==
[~2024-12-16] VITALS: Ht 157.5 cm; Wt 51.5 kg
[~2024-12-16 21:51] MED LIST changes: +CEFDINIR300 MG PO
--- OUTSIDE RECORDS SUMMARY | 2024-12-16 21:56 | XMS ---
PreManage Notification: AUBREY ACEVES Security Package Reinspector Events No recent Security Events currently on file CRITERIA MET - [facility] - 2 Visits in 30 Days CARE PROVIDERS POLLY DAMIAN Nurse Practitioner: Family Current PHONE: Unknown Nelda has no Care Guidelines for this patient. ERashi VISIT COUNT (12 MO.) 4 [facility] TOTAL 4 NOTE: Visits indicate total known visits. ED/UCC VISIT TRACKING (12 MO.) 12/16/2024 21:52 [facility] TYPE: Emergency COMPLAINT: - VOMITING BLOOD 11/23/2024 14:23 [facility] TYPE: Emergency COMPLAINT: - WEAKNESS DIAGNOSES: - Age-related osteoporosis without current pathological fracture - Allergy status to other drugs, medicaments and biological substances - Altered mental status, unspecified - Essential (primary) hypertension - Hormone replacement therapy - Hypothyroidism, unspecified - FDC (current) use of oral hypoglycemic drugs - Other correction (current) drug therapy - Type 2 diabetes mellitus with diabetic peripheral angiopathy without gangrene - Unspecified atrial fibrillation - Unspecified dementia, unspecified severity, without behavioral disturbance, psychotic disturbance, mood disturbance, and anxiety - Urinary tract infection, site not specified 10/31/2024 14:43 [facility] TYPE: Emergency COMPLAINT: - STROKE SYMPTOMS DIAGNOSES: - Age-related osteoporosis without current pathological fracture - Allergy status to other drugs, medicaments and biological substances - Altered mental status, unspecified - Delirium due to known physiological condition - Essential (primary) hypertension - Hormone replacement therapy - Hypothyroidism, unspecified - FDC (current) use of anticoagulants - termite treater helper (current) use of oral hypoglycemic drugs - Other correction (current) drug therapy - Paroxysmal atrial fibrillation - Type 2 diabetes mellitus with diabetic peripheral angiopathy without gangrene - Unspecified dementia, unspecified severity, without behavioral disturbance, psychotic disturbance, mood disturbance, and anxiety 10/27/2024 12:37 [facility] TYPE: Emergency COMPLAINT: - STROKE INPATIENT VISIT TRACKING (12 MO.) 10/28/2024 16:30 [facility] TYPE: Medical Surgical COMPLAINT: - TIA DIAGNOSES: - Acquired absence of both cervix and uterus - Age-related osteoporosis without current pathological fracture - Allergy status to other drugs, medicaments and biological substances - Allergy status to penicillin - Facial weakness - Hormone replacement therapy - Hyperlipidemia, unspecified - Hypothyroidism, unspecified - termite treater helper (current) use of anticoagulants - FDC (current) use of oral hypoglycemic drugs - Other correction (current) drug therapy - Retention of urine, unspecified - Transient cerebral ischemic attack, unspecified - Type 2 diabetes mellitus without complications - Unspecified atrial fibrillation - Unspecified dementia, unspecified severity, without behavioral disturbance, psychotic disturbance, mood disturbance, and anxiety [id number]
[2024-12-16] MEDS ORDERED: MORPHINE SULFATE 4 MG/ML VIAL IV ONE (22:00)
[2024-12-16] MEDS ORDERED: SODIUM CHLORIDE 0.9% 1,000 ML IV ONE (22:00)
[2024-12-16] MEDS ORDERED: ondansetron HCL 4 MG/2 ML VIAL IV ONE (22:00)
[2024-12-16 22:11] LABS: BASOPHILS 0.6 % (0-2); EOSINOPHILS 0.2 % (0-6); HEMATOCRIT 29.5 % (35.0-50.0); HEMOGLOBIN 9.9 g/dL (12.0-18.0); MCH 26.7 (27-36); MCHC 33.4 g/dl (30-36); MCV 80.1 fl (81-99); MONOCYTES 11.2 % (0-12); PLATELET COUNT 307 K/uL (140-440); RBC 3.69 M/ul (4.3-5.7); RDW 16.3 (10.5-15.0)
[2024-12-16 22:22] LABS: BILIRUBIN, URINE NEGATIVE (negative); BLOOD/HGB, URINE NEGATIVE (Negative); KETONE, URINE SMALL (Negative); LEUK ESTERASE, URINE NEGATIVE (negative); NITRITE, URINE NEGATIVE (negative)
[2024-12-16 22:28] LABS: ALBUMIN/GLOBULIN RATIO 0.71 (1.1-2.4); ANION GAP 17.4 (7-21); BILIRUBIN, TOTAL 0.6 mg/dL (0.2-1.0); BUN/CREATININE RATIO 15.47 (6.0-28.6); CALCIUM 8.4 mg/dL (8.5-10.1); CREATININE, SERUM 0.84 mg/dL (0.55-1.02); POTASSIUM 3.4 mmol/L (3.5-5.1); PROTEIN, TOTAL 7.2 g/dL (6.4-8.2)
[2024-12-16 22:29] LABS: BACTERIA, URINE 1+ /hpf (negative); CASTS, URINE HYALINE 1+ \\lpf; COLLECTION TYPE, URINE CLEAN CATCH; CRYSTALS, URINE NONE SEEN (0-1+); EPITHELIAL CELLS, URINE SQUAMOUS 2+ /lpf (0-1+); REFLEX CULTURE, URINE No (No)
[2024-12-17] MEDS ORDERED: FLOMAX0.4 MG PO (00:09)
[2024-12-17] MEDS ORDERED: MACROBID 100 M100 MG PO (00:09)
[2024-12-17] MEDS ORDERED: NITROFURANTOIN MONOHYD MACROCR 100 MG CAP PO ONE (00:30)
[2024-12-17] MEDS ORDERED: TAMSULOSIN HCL 0.4 MG CAP PO ONE (00:30)
[2024-12-17 07:10] VITALS: BP 157/85
== END 2024-12-17 07:12 | disposition home or self-care (01) ==
LOC: ED 21:51
PROVIDERS: Family Medicine
DX: N39.0 Urinary tract infection, site not specified (principal); N32.0 Bladder-neck obstruction; I10 Essential (primary) hypertension; F03.90 Unspecified dementia, unspecified severity, without behavioral disturbance, psychotic disturbance, mood disturbance, and anxiety; E03.9 Hypothyroidism, unspecified; I48.91 Unspecified atrial fibrillation; E11.51 Type 2 diabetes mellitus with diabetic peripheral angiopathy without gangrene; M81.0 Age-related osteoporosis without current pathological fracture; Z88.8 Allergy status to other drugs, medicaments and biological substances; Z79.01 Long term (current) use of anticoagulants; Z79.82 Long term (current) use of aspirin; Z79.890 Hormone replacement therapy; Z79.84 Long term (current) use of oral hypoglycemic drugs; Z79.899 Other long term (current) drug therapy
CPT/HCPCS: 36415; 51702; 74177; 80053; 81001; 83690; 85025; 99284-25; A4311; J2270; J2405; J7030; Q9967

== ENCOUNTER 2025-02-11 10:53 | Emergency (ER) | payer MEDICARE, OTHER ==
[~2025-02-11] VITALS: Ht 157.5 cm; Wt 58.6 kg
[~2025-02-11 10:53] MED LIST changes: +FLOMAX0.4 MG PO; +MACROBID 100 M100 MG PO
[2025-02-11] MEDS ORDERED: CALCIUM 1,0001 EAC1 PO (11:07)
[2025-02-11 12:13] VITALS: BP 188/81
== END 2025-02-11 12:13 | disposition home or self-care (01) ==
LOC: ED 10:53
DX: R41.82 Altered mental status, unspecified (principal); E03.9 Hypothyroidism, unspecified; I10 Essential (primary) hypertension; Z79.899 Other long term (current) drug therapy; Z79.82 Long term (current) use of aspirin; Z88.1 Allergy status to other antibiotic agents; Z88.8 Allergy status to other drugs, medicaments and biological substances
CPT/HCPCS: 99284